=== PATIENT | male | born 1990 | race Caucasian/White ===

== ENCOUNTER 2018-06-21 19:10 | Emergency (ER) | payer MEDICAID ==
[~2018-06-21] VITALS: Ht 172.7 cm; Wt 78.0 kg
[2018-06-21 19:15] VITALS: BP_SYST 140
--- NOTE | 2018-06-21 19:18 | NUR ---
Patient triaged and placed in waiting room. VSS and patient appears in no acute distress at this time. Accompanied by SELF, awaiting available bed, and MD notified of need for MSE.PATIENT ABLE TO AMBULATE W/ A STEADY GAIT TO WAITING ROOM, VVS.
--- NOTE | 2018-06-21 21:46 | NUR ---
Patient to ER bed 3 to gown for evaluation. Side rails up. Report given to OTONIEL SHAH.
--- NOTE | 2018-06-21 21:50 | NUR ---
Patient AAO x4 sitting in bed c/o episode of anxiety after taking BP at a local drug store. No acute distress noted. Patient vital signs stable. Will continue to monitor.
--- NOTE | 2018-06-21 22:30 | NUR ---
ER at bedside examining patient.
[2018-06-22] MEDS ORDERED: traZODone HCL 50 MG TABLET (DESYREL) PO ONE
[2018-06-22] MEDS ORDERED: traZODone HCL 50 MG TABLET (DESYREL) ONE (00:33)
[2018-06-22 00:34] VITALS: BP_SYST 135
--- NOTE | 2018-06-22 00:34 | NUR ---
Patient given written and verbal discharge instructions and verbalizes understanding. ER MD discussed with patient the results and treatment provided. Patient in stable condition. ID arm band removed. IV catheter removed intact and dressing applied, no active bleeding. No Rx given. Patient educated on pain management and to follow up with PMD. Pain Scale 0/10. Opportunity for questions provided and answered.
== END 2018-06-22 00:34 | disposition home or self-care (01) ==
LOC: SED 19:10
DX: R07.89 Other chest pain (principal); F41.9 Anxiety disorder, unspecified; Z87.891 Personal history of nicotine dependence; Z88.6 Allergy status to analgesic agent
CPT/HCPCS: 93005; 99283